=== PATIENT | male | born 1975 | race Two or more races ===

== ENCOUNTER 2018-07-12 04:10 | Emergency (ER) | payer OTHER ==
[~2018-07-12] VITALS: Ht 172.7 cm; Wt 81.6 kg
[2018-07-12] MEDS ORDERED: IV NORMAL SALINE 1000ML BAG 1,000 ML IV SCH (04:24)
[2018-07-12] MEDS ORDERED: PROCHLORPERAZINE 10 MG/2 ML VIAL. IV ONE (04:30)
[2018-07-12] MEDS ORDERED: KETOROLAC 30 MG/ML VIAL. IV ONE (04:30)
[2018-07-12 04:38] LABS: BASO % 0 % (0-3); EOS # 0.2 x10^3/uL (0.0-0.7); EOS % 2 % (0-3); HEMOGLOBIN 14.5 g/dL (13.0-17.5); LYMPH % 30 % (24-48); MEAN CORPUSCULAR HEMOGLOBIN 29 pg (25-35); MEAN CORPUSCULAR HGB CONC 34 g/dL (31-37); MEAN CORPUSCULAR VOLUME 86 fL (79-100); MONO # 0.6 x10^3/uL (0.0-1.1); MONO % 6 % (0-9); NEUT # 6.2 x10^3uL (1.8-7.7); NEUT % 61 % (31-73); PLATELET COUNT 388 x10^3/uL (140-400); RED BLOOD COUNT 5.02 x10^6/uL (4.30-5.70); RED CELL DISTRIBUTION WIDTH 13.3 % (11.5-14.5); WHITE BLOOD COUNT 10.1 x10^3/uL (4.0-11.0)
[2018-07-12 04:44] LABS: CALCIUM 9.2 mg/dL (8.5-10.1); CREATININE 1.4 mg/dL (0.7-1.3); GFR 56.1; POTASSIUM 3.8 mmol/L (3.5-5.1)
[2018-07-12 04:45] LABS: PROTHROMBIN TIME PATIENT 12.9 SEC (11.7-14.0)
[2018-07-12 04:50] LABS: ALBUMIN 3.6 g/dL (3.4-5.0); TOTAL BILIRUBIN 0.5 mg/dL (0.2-1.0); TOTAL PROTEIN 7.3 g/dL (6.4-8.2)
--- NOTE | 2018-07-12 05:00 | PHYS DOC ---
Past Medical History Past Medical History: No Pertinent History (INOCENTE HERNÁNDEZ DO) Past Surgical History: No Surgical History (INOCENTE HERNÁNDEZ DO) Alcohol Use: None Drug Use: None (INOCENTE HERNÁNDEZ DO) Adult General Chief Complaint Chief Complaint: FLANK PAIN HPI HPI Patient is a 42 year old male who presents with right abdominal and flank pain. This started just prior to EMS being called. 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 Home is in [place]. Patient denies any hematuria. Denies any fever. Notes that there is nausea and vomiting due to the pain. Nothing that he does makes the pain better or worse. Pain is waxing and waning in nature. Sharp. Severe at its worst. No loss of consciousness. [] (INOCENTE HERNÁNDEZ DO) Review of Systems Review of Systems Constitutional: Denies fever or chills [] Eyes: Denies change in visual acuity, redness, or eye pain [] HENT: Denies nasal congestion or sore throat [] Respiratory: Denies cough or shortness of breath [] Cardiovascular: No chest pain or palpitations[] GI: Denies bloody stools or diarrhea, see history of present illness [] : Denies dysuria or hematuria [] Musculoskeletal: Denies back pain or joint pain [] Integument: Denies rash or skin lesions [] Neurologic: Denies headache, focal weakness or sensory changes [] Endocrine: Denies polyuria or polydipsia [] All other systems were reviewed and found to be within normal limits, except as documented in this note. (INOCENTE HERNÁNDEZ DO) Current Medications Current Medications Current Medications Medications (Trade) Dose Ordered Sig/Radha Start Time Stop Time Status Last Admin Dose Admin Ketorolac Tromethamine (Toradol 30mg Vial) 30 mg 1X ONCE 07/12/18 04:30 07/12/18 04:44 DC 07/12/18 04:35 30 MG Prochlorperazine Edisylate (Compazine) 5 mg 1X ONCE 07/12/18 04:30 07/12/18 04:44 DC 07/12/18 04:34 5 MG Sodium Chloride 1,000 ml @ 1,000 mls/hr Q1H 07/12/18 04:24 07/12/18 05:23 DC 07/12/18 04:36 1,000 MLS/HR Tamsulosin HCl (Flomax) 0.4 mg 1X ONCE 07/12/18 07:00 07/12/18 07:01 DC 07/12/18 07:11 0.4 MG (PONCHO COSTA DO) Allergies Allergies Allergies Coded Allergies Type Severity Reaction Last Updated Verified No Known Drug Allergies 07/12/18 No (PONCHO COSTA DO) Physical Exam Physical Exam Constitutional: Well developed, well nourished, moderate, non-toxic appearance. [] HENT: Normocephalic, atraumatic, bilateral external ears normal, oropharynx moist, no oral exudates, nose normal. [] Eyes: PERRLA, EOMI, conjunctiva normal, no discharge. [] Neck: Normal range of motion, no tenderness, supple, no stridor. [] Cardiovascular:Heart rate regular rhythm, no murmur [] Lungs & Thorax: Bilateral breath sounds clear to auscultation [] Abdomen: Bowel sounds normal, soft, right-sided abdominal pain, no rebound, no guarding, no rigidity, no masses, no pulsatile masses. [] Skin: Warm, dry, no erythema, no rash. [] Back: No tenderness, no CVA tenderness. [] Extremities: No tenderness, no cyanosis, no clubbing, ROM intact, no edema. [] Neurologic: Alert and oriented X 3, normal motor function, normal sensory function, no focal deficits noted. [] Psychologic: Affect normal, judgement normal, mood normal. [] (EIDENBERGINOCENTE DO) Physical Exam Constitutional: Well developed, well nourished, moderate, non-toxic appearance. [] Abdomen: Soft, nontender, no rebound, no guarding, no rigidity Skin: Warm, dry, no erythema, no rash. [] Back: No tenderness, no CVA tenderness. [] Neurologic: Alert and oriented X 3, no focal deficits noted. [] Psychologic: Affect normal, judgement normal, mood normal. [] (PONCHO COSTA DO) Current Patient Data Vital Signs Vital Signs Date Time Temp Pulse Resp B/P (MAP) Pulse Ox O2 Delivery O2 Flow Rate FiO2 07/12/18 06:59 95 111/79 (90) 07/12/18 04:13 98.4 24 99 Room Air 98.4 (PONCHO COSTA DO) Lab Values Laboratory Tests Test 07/12/18 04:26 07/12/18 06:26 White Blood Count 10.1 x10^3/uL (4.0-11.0) Red Blood Count 5.02 x10^6/uL (4.30-5.70) Hemoglobin 14.5 g/dL (13.0-17.5) Hematocrit 43.0 % (39.0-53.0) Mean Corpuscular Volume 86 fL (79-100) Mean Corpuscular Hemoglobin 29 pg (25-35) Mean Corpuscular Hemoglobin Concent 34 g/dL (31-37) Red Cell Distribution Width 13.3 % (11.5-14.5) Platelet Count 388 x10^3/uL (140-400) Neutrophils (%) (Auto) 61 % (31-73) Lymphocytes (%) (Auto) 30 % (24-48) Monocytes (%) (Auto) 6 % (0-9) Eosinophils (%) (Auto) 2 % (0-3) Basophils (%) (Auto) 0 % (0-3) Neutrophils # (Auto) 6.2 x10^3uL (1.8-7.7) Lymphocytes # (Auto) 3.0 x10^3/uL (1.0-4.8) Monocytes # (Auto) 0.6 x10^3/uL (0.0-1.1) Eosinophils # (Auto) 0.2 x10^3/uL (0.0-0.7) Basophils # (Auto) 0.0 x10^3/uL (0.0-0.2) Prothrombin Time 12.9 SEC (11.7-14.0) Prothrombin Time INR 1.0 (0.8-1.1) Sodium Level 144 mmol/L (136-145) Potassium Level 3.8 mmol/L (3.5-5.1) Chloride Level 106 mmol/L (98-107) Carbon Dioxide Level 25 mmol/L (21-32) Anion Gap 13 (6-14) Blood Urea Nitrogen 16 mg/dL (8-26) Creatinine 1.4 mg/dL (0.7-1.3) H Estimated GFR (Cockcroft-Gault) 56.1 BUN/Creatinine Ratio 11 (6-20) Glucose Level 136 mg/dL (70-99) H Calcium Level 9.2 mg/dL (8.5-10.1) Total Bilirubin 0.5 mg/dL (0.2-1.0) Aspartate Amino Transferase (AST) 17 U/L (15-37) Alanine Aminotransferase (ALT) 25 U/L (16-63) Alkaline Phosphatase 105 U/L (46-116) Total Protein 7.3 g/dL (6.4-8.2) Albumin 3.6 g/dL (3.4-5.0) Albumin/Globulin Ratio 1.0 (1.0-1.7) Lipase 133 U/L (73-393) Urine Collection Type Void Urine Color Yellow Urine Clarity Clear Urine pH 5.5 Urine Specific [place] 1.020 Urine Protein Negative mg/dL (NEG-TRACE) Urine Glucose (UA) Negative mg/dL (NEG) Urine Ketones (Stick) Negative mg/dL (NEG) Urine Blood Moderate (NEG) Urine Nitrite Negative (NEG) Urine Bilirubin Negative (NEG) Urine Urobilinogen Dipstick 0.2 mg/dL (0.2 mg/dL) Urine Leukocyte Esterase Negative (NEG) Urine RBC 11-20 /HPF (0-2) Urine WBC Occ /HPF (0-4) Urine Squamous Epithelial Cells Occ /LPF Urine Bacteria 0 /HPF (0-FEW) Urine Mucus Mod /LPF Laboratory Tests 07/12/18 04:26 Laboratory Tests 07/12/18 04:26 (PONCHO COSTA DO) EKG EKG [] ([facility],INOCENTE DO) Radiology/Procedures Radiology/Procedures CT ABDOMEN/PELVIS WITHOUT CONTRAST. HISTORY: Right flank pain. TECHNIQUE: Computed tomography of the abdomen and pelvis was performed without intravenous contrast. COMPARISON: None. FINDINGS: Lung windows through the visualized portions of the bases reveal mild atelectasis. Bone windows reveal no suspicious lesions. A right ureteropelvic junction calculus measures 5 mm. There is mild right pelviectasis. There are no additional ureteral calculi. Multiple bilateral renal calculi measure up to 6 mm on the left. The kidneys demonstrate no suspicious lesions without contrast. The liver, spleen, adrenal glands, gallbladder and pancreas are unremarkable without contrast. There are no pathologically enlarged lymph nodes. The appendix is not inflamed. There is no small bowel obstruction. IMPRESSION: 1. 5 mm right ureteropelvic junction calculus. Only mild right pelviectasis. 2. Multiple bilateral renal calculi measure up to 6 mm on the left.[] (INOCENTE HERNÁNDEZ DO) Course & Med Decision Making Course & Med Decision Making Pertinent Labs and Imaging studies reviewed. (See chart for details) ED course: Patient arrived, was placed in bed, in tolerated exam well. He was given antiemetics as well as pain medication which she tolerated well. He was transported to and from CT scan without any complications. At the time of this dictation currently awaiting urinalysis to ensure that he does not have an infected stone nor urinary tract infection. Patient care endorsed to the daytime physician at 6 AM with urinalysis pending.[] (INOCENTE HERNÁNDEZ DO) Course & Med Decision Making 0600- Sign out received from Dr. Hernández for patient with right flank pain. Pain/nausea previously addressed. IVF hydration previously given. Labs reviewed. CT imaging with findings of obstructing 5mm stone. UA pending. UA without signs of infection. Microscopic hematuria noted. Flomax provided. Patient seen and evaluated by myself. Patient stable for discharge with outpatient follow-up with PCP/urologist. Urology referral provided. Discussed findings and plan with patient, who acknowledges understanding and agreement. (PONCHO COSTA DO) Dragon Disclaimer Dragon Disclaimer This electronic medical record was generated, in whole or in part, using a voice recognition dictation system. (INOCENTE HERNÁNDEZ DO) Departure Departure Impression: Primary Impression: Kidney stone Additional Impression: Renal insufficiency Disposition: 01 HOME, SELF-CARE Condition: STABLE Referrals: NO PCP (PCP) CHRISTIAN GARRETT MD Patient Instructions: Chronic Renal Insufficiency, Diet for Kidney Stones, Kidney Stones, [id number]-Hpyf Scripts Hydrocodone/Apap 5-325 (NORCO 5-325 TABLET) 1 Each Tablet 0.5-1 TAB PO PRN Q6HRS PRN for PAIN, #6 TAB 0 Refills Prov: PONCHO COSTA DO 07/12/18 Ondansetron (ONDANSETRON ODT) 4 Mg Tab.rapdis 1 TAB PO PRN Q6-8HRS for VOMITING, #16 TAB Prov: PONCHO COSTA DO 07/12/18 Tamsulosin Hcl (FLOMAX) 0.4 Mg Cap.er.24h 1 CAP PO DAILY, #14 CAP 11 Refills Prov: PONCHO COSTA DO 07/12/18 Problem Qualifiers INOCENTE HERNÁNDEZ DO Jul 12, 2018 05:00 PONCHO COSTA DO Jul 12, 2018 06:55
--- NOTE | 2018-07-12 05:45 | RAD ---
EXAM: CT ABDOMEN/PELVIS WITHOUT CONTRAST. HISTORY: Right flank pain. TECHNIQUE: Computed tomography of the abdomen and pelvis was performed without intravenous contrast. COMPARISON: None. FINDINGS: Lung windows through the visualized portions of the bases reveal mild atelectasis. Bone windows reveal no suspicious lesions. A right ureteropelvic junction calculus measures 5 mm. There is mild right pelviectasis. There are no additional ureteral calculi. Multiple bilateral renal calculi measure up to 6 mm on the left. The kidneys demonstrate no suspicious lesions without contrast. The liver, spleen, adrenal glands, gallbladder and pancreas are unremarkable without contrast. There are no pathologically enlarged lymph nodes. The appendix is not inflamed. There is no small bowel obstruction. IMPRESSION: 1. 5 mm right ureteropelvic junction calculus. Only mild right pelviectasis. 2. Multiple bilateral renal calculi measure up to 6 mm on the left. *One or more of the following individualized dose reduction techniques were utilized for this examination: 1. Automated exposure control. 2. Adjustment of the mA and/or kV according to patient size. 3. Use of iterative reconstruction technique. Electronically signed by: Adalberto Michel MD (07/12/2018 5:40 AM) [id number]
[2018-07-12 06:35] LABS: BILIRUBIN,URINE NEGATIVE (NEG); CLARITY,URINE CLEAR; COLOR,URINE YELLOW; NITRITE,URINE NEGATIVE (NEG); PH,URINE 5.5; PROTEIN,URINE NEGATIVE (NEG-TRACE); UROBILINOGEN,URINE 0.2 mg/dL (0.2 mg/dL)
[2018-07-12 06:48] LABS: SQUAMOUS EPITHELIAL CELL,UR OCC /LPF
[2018-07-12 06:49] LABS: BACTERIA,URINE 0 /HPF (0-FEW); WBC,URINE OCC /HPF (0-4)
[2018-07-12] MEDS ORDERED: TAMS0.4C97 PO (06:55)
[2018-07-12] MEDS ORDERED: ONDA4TAB12 PO (06:55)
[2018-07-12 06:59] VITALS: BP 111/79
[2018-07-12] MEDS ORDERED: HYDR-3164 PO (06:59)
[2018-07-12] MEDS ORDERED: TAMSULOSIN 0.4 MG CAP.ER.24H. PO ONE (07:00)
== END 2018-07-12 07:29 | disposition home or self-care (01) ==
LOC: ER 04:10
DX: N20.2 Calculus of kidney with calculus of ureter (principal); R10.9 Unspecified abdominal pain
CPT/HCPCS: 36415; 74176; 80053; 81001; 83690; 85025; 85610; 96361; 96374; 96375; 99284; J0780; J1885; J7030; 99283